=== PATIENT | female | born 2000 | race Caucasian/White ===

== ENCOUNTER 2022-11-18 10:41 | Outpatient (CLI) | payer OTHER, SELFPAY ==
[2022-11-18 14:10] LABS: Chlamydia DNA Amplified* NOT DETECTED (No Detected); GC DNA Amplified* NOT DETECTED (No Detected)
== END 2022-11-18 10:42 | disposition home or self-care (01) ==
PROVIDERS: Visit Provider Physician Assistant
DX: Z01.419 Encounter for gynecological examination (general) (routine) without abnormal findings (principal); N89.8 Other specified noninflammatory disorders of vagina
CPT/HCPCS: 80061; 87491; 87591

== ENCOUNTER 2023-02-09 13:57 | Outpatient (CLI) | payer OTHER, SELFPAY ==
[2023-02-12 03:28] LABS: Bacterial Vaginosis by TMA Negative; Candida glabrata by TMA Negative; Candida species by TMA Negative; Trichomonas vaginalis by TMA Negative
== END 2023-02-09 13:58 | disposition home or self-care (01) ==
PROVIDERS: Visit Provider Obstetrics & Gynecology
DX: B37.31 Acute candidiasis of vulva and vagina (principal); L29.2 Pruritus vulvae
CPT/HCPCS: 81513; 87102; 87481; 87661

== ENCOUNTER 2023-11-21 12:19 | Outpatient (CLI) | payer OTHER, SELFPAY | END 2023-11-21 12:20 | disposition home or self-care (01) | LOC: NFLDREF 12:20 | PROVIDERS: Visit Provider Registered Nurse | DX: Z01.419 Encounter for gynecological examination (general) (routine) without abnormal findings (principal); Z13.1 Encounter for screening for diabetes mellitus; Z11.3 Encounter for screening for infections with a predominantly sexual mode of transmission | CPT/HCPCS: 86703 ==

== ENCOUNTER 2024-07-09 14:04 | Outpatient (CLI) | payer OTHER, SELFPAY ==
[2024-07-09 17:33] LABS: Bacterial Vaginosis* Negative (Negative); Candida glab/krus NOT DETECTED (No Detected); Candida species NOT DETECTED (No Detected); Trichomonas vaginalis NOT DETECTED (No Detected)
== END 2024-07-09 14:05 | disposition home or self-care (01) ==
PROVIDERS: Visit Provider Registered Nurse
DX: N90.89 Other specified noninflammatory disorders of vulva and perineum (principal); R10.2 Pelvic and perineal pain
CPT/HCPCS: 81513; 87086; 87481; 87661